=== PATIENT | female | born 1955 | race Caucasian/White ===

== ENCOUNTER → 2016-06-09 | Outpatient (CLI) | payer BC ==
[~2016-06-09] MED LIST: CALC500C70 PO; CETI10TA84 PO; CHOL100010 PO; CHOL100041 PO; CYAN500T PO; ENOX120I SQ; FMR25 PO; PRAV40TA2 PO; PRVC10 PO; WARF5TAB7 PO; WARF5TAB90 PO
== END | disposition home or self-care (01) ==
LOC: C.PAPS 09:23
PROVIDERS: ATTEND Obstetrics & Gynecology
DX: Z01.419 Encounter for gynecological examination (general) (routine) without abnormal findings (principal); Z87.42 Personal history of other diseases of the female genital tract; Z78.0 Asymptomatic menopausal state

== ENCOUNTER → 2016-06-12 | Outpatient (CLI) | payer BC | END | disposition home or self-care (01) | LOC: C.RAD1850 09:36 | PROVIDERS: ATTEND Internal Medicine | DX: Z00.00 Encounter for general adult medical examination without abnormal findings (principal); Z12.11 Encounter for screening for malignant neoplasm of colon; E78.00 Pure hypercholesterolemia, unspecified ==

== ENCOUNTER → 2016-06-18 | Outpatient (CLI) | payer BC ==
[2016-06-18 11:30] LABS: ALKALINE PHOSPHATASE 84 U/L (45-117); ALT/SGPT 39 U/L (12-78); AST/SGOT 21 U/L (15-37); BLOOD UREA NITROGEN 15 mg/dl (7-18); BUN/CREATININE RATIO 19.7 (10-20); CARBON DIOXIDE 26 mmol/L (21-32); CHLORIDE 106 mmol/L (98-107); CHOLESTEROL 258 mg/dl (0-200); CHOLESTEROL/HDL RATIO 2.8; CREATININE 0.76 mg/dl (0.60-1.20); GLUCOSE 103 mg/dl (70-99); HDL CHOLESTEROL 92 mg/dl; POTASSIUM 3.6 mmol/L (3.5-5.1); SODIUM 142 mmol/L (136-145)
[2016-06-18 11:41] LABS: LDL CHOLESTEROL CALCULATED 148 mg/dl; THYROID STIMULATING HORMONE 0.721 uIu/ml (0.300-4.500); TRIGLYCERIDES 88 mg/dl (0-150); VERY LOW DENSITY LIPOPROT CALC 18 mg/dl
== END | disposition home or self-care (01) ==
LOC: C.LAB 17:16
PROVIDERS: ATTEND Internal Medicine
DX: E78.00 Pure hypercholesterolemia, unspecified (principal); E55.9 Vitamin D deficiency, unspecified; E53.8 Deficiency of other specified B group vitamins

== ENCOUNTER 2016-11-11 16:34 | Emergency (ER) | payer BC ==
[~2016-11-11] VITALS: Ht 165.1 cm; Wt 79.7 kg
[~2016-11-11 16:34] MED LIST changes: -CHOL100041 PO; -ENOX120I SQ; -PRAV40TA2 PO; -WARF5TAB7 PO; -WARF5TAB90 PO
[2016-11-11 16:45] VITALS: BP 119/72; TEMP 36.7; Ht 165.1 cm; Wt 79.7 kg
[2016-11-11] MEDS ORDERED: PRAV40TA2 PO (17:06)
[2016-11-11 17:56] LABS: BASO % 0.1 %; BASO ABS # 0.01 K/uL (0-0.2); COMPLETE YES; EOS % 2.4 %; HEMATOCRIT 41.5 % (37-47); IG% 0.1 %; LYMPH % 19.1 %; LYMPH ABS # 1.42 K/uL (1.2-3.4); MEAN CELL VOLUME 91.4 fL (80-100); MEAN CORPUSCULAR HEMOGLOBIN 29.5 pg (25-34); MEAN CORPUSCULAR HGB CONC 32.3 g/dl (32-36); MEAN PLATELET VOLUME 8.2 fL (7.4-10.4); MONO % 7.9 %; NEUT % 70.4 %; PLATELET COUNT 134 K/uL (130-400); RED BLOOD COUNT 4.54 M/uL (4.2-5.4); WHITE BLOOD COUNT 7.45 K/uL (4.8-10.8)
[2016-11-11 18:12] LABS: INR 0.9 (0.9-1.1); PROTHROMBIN TIME (PATIENT) 9.7 SECONDS (9.0-12.0)
[2016-11-11 18:17] LABS: BUN/CREATININE RATIO 18.9 (10-20); CREATININE 0.83 mg/dl (0.60-1.20); POTASSIUM 3.4 mmol/L (3.5-5.1)
--- NOTE | 2016-11-11 18:22 | DIAGNOSTIC IMAGING REPORT ---
VENOUS DOPP LOWER EXT UNILAT CLINICAL HISTORY: EVALUATE FOR DVT pain. Edema. TECHNIQUE: Venous Doppler COMPARISON STUDY: None FINDINGS: Study is positive for acute deep venous thrombosis in the involving the left femoral vein and its mid to distal aspect. There is also involvement of the popliteal vein. IMPRESSION: Acute deep venous thrombosis from the mid femoral vein extending through the popliteal vein. The above report was generated using voice recognition software. It may contain grammatical, syntax or spelling errors. Electronically signed by: lAlen Leach M.D. 11/11/2016 6:20 PM Dictated Date/Time: 11/11/2016 6:19 PM
[2016-11-11] MEDS ORDERED: ENOXAPARIN 120 MG/0.8 ML SYR SQ ONE (19:00)
[2016-11-11] MEDS ORDERED: WARFARIN SOD 5 MG TAB PO ONE (19:00)
[2016-11-11] MEDS ORDERED: LOVENOX TEACHING KIT PRN (19:00)
[2016-11-11] MEDS ORDERED: WARF5TAB90 PO (19:02)
[2016-11-11] MEDS ORDERED: ENOX120I SQ (19:02)
[2016-11-11 19:45] VITALS: PULSE 95; O2SAT 100
--- NOTE | 2016-11-12 00:53 | EMERGENCY ROOM VISIT NOTE ---
ED Visit Note First contact with patient: 16:51 Chief Complaint: Left leg pain and swelling. History of Present Illness: Ms. Bales is a 61-year-old white female who ambulates into the ED complaining of left lower leg pain and swelling. Historically patient reports she had a left lower leg DVT last year after breast implantation surgery and was on anticoagulant therapy for approximately 7 months. Additionally she reports she has factor V Leiden mutation disorder. Patient reports 2 days ago she started developing pain in the left popliteal area. She reports the pain has been mild and rates her discomfort 2/10. Over the past few days she has noted her pain starting radiating medially and up into her thigh. She has not identified any aggravating or alleviating factors related to the pain. She has been using ibuprofen without relief of her discomfort. Upon waking today she noted swelling of the lower leg and around the ankle and concerned about a DVT. She denies any associated symptoms including fevers, chills, sweats, skin eruptions, skin color changes, chest pain, palpitations, orthopnea, claudication , cramping, recent surgery/inactivity/extended travel, syncope, leg weakness/ numbness/tingling, recent trauma to the left leg. Review of Systems: As noted above in history of present illness. All body systems were reviewed and found to be negative as noted above. Past Medical History: As previously noted, irritable bowel syndrome, hypercholesterolemia, and status post section, cholecystectomy, mastectomy and wisdom teeth extraction. Current Medications: Zyrtec, Os-Steven plus D, pravastatin, Femara. Allergies to Medications: Azithromycin, doxycycline, fluticasone, sulfa. Social History: Patient is currently employed; she feels safe in her home environment; she denies tobacco and alcohol use. Physical Examination: Vital Signs: Date Time Temp Pulse Resp B/P (MAP) Pulse Ox O2 Delivery O2 Flow Rate FiO2 11/11/16 19:45 95 18 100 11/11/16 18:45 92 11/11/16 16:45 36.7 87 18 119/72 100 Room Air GENERAL: 61-year-old female in mild distress due to pain, nontoxic-appearing, afebrile and hemodynamically stable. NEUROLOGICAL: Awake, alert and oriented to person, place and time. Answering questions appropriately and following commands. Normal gait. Good hand eye coordination. No focal motor sensory deficits. SKIN: Warm, dry and pink. No soft tissue eruptions or trauma noted. HEENT: Atraumatic and normocephalic. PERRLA. Sclera white and conjunctiva pink. No drainage from naris. Oral cavity moist and pink. Pharynx is nonerythematous or edematous. Speech normal. No lymphadenopathy. Trachea midline. No jugular venous distention. No carotid bruits. BACK: No tenderness over the bony spine. No CVA tenderness. THORAX: Lungs sounds are clear to auscultation and equal bilaterally with symmetrical chest wall. No wheezing, rales or rhonchi. No crepitus, tenderness , subcutaneous air or deformities noted. HEART: Regular rate and rhythm. No gallops, rubs or murmurs are appreciated. ABDOMEN: Flat, soft and nontender. Positive bowel sounds in all quadrants. No guarding, rigidity or organomegaly. EXTREMITIES: Moves all extremities well on command and with purpose. All distal neurovascular statuses are intact and equal bilaterally. Left Lower Extremity: No gross bony deformity. No shortening or malrotation. No tenderness over the hip, knee, ankle or foot. Mild tenderness in the popliteal area and extending medially and up the medial aspect to the mid thigh. Lower leg is mildly swollen but is not erythematous. No palpable cords. Full range of motion of flexion and extension of the knee, plantar flexion and dorsiflexion of the ankle and flexion and extension of all toes. Throughout the foot the skin was warm and pink and capillary refill is brisk. Distal pulses were intact and equal bilaterally. She was able to distinguish light sensations through all dermatomes of the lower leg. ED Course: Patient is assessed as noted above. Patient's medication list was reviewed. Laboratory Testing: Test 11/11/16 17:42 Range/Units White Blood Count 7.45 4.8-10.8 K/uL Red Blood Count 4.54 4.2-5.4 M/uL Hemoglobin 13.4 12.0-16.0 g/dL Hematocrit 41.5 37-47 % Mean Corpuscular Volume 91.4 80-100 fL Mean Corpuscular Hemoglobin 29.5 25-34 pg Mean Corpuscular Hemoglobin Concent 32.3 32-36 g/dl Platelet Count 134 130-400 K/uL Mean Platelet Volume 8.2 7.4-10.4 fL Neutrophils (%) (Auto) 70.4 % Lymphocytes (%) (Auto) 19.1 % Monocytes (%) (Auto) 7.9 % Eosinophils (%) (Auto) 2.4 % Basophils (%) (Auto) 0.1 % Neutrophils # (Auto) 5.24 1.4-6.5 K/uL Lymphocytes # (Auto) 1.42 1.2-3.4 K/uL Monocytes # (Auto) 0.59 0.11-0.59 K/uL Eosinophils # (Auto) 0.18 0-0.5 K/uL Basophils # (Auto) 0.01 0-0.2 K/uL RDW Standard Deviation 45.2 36.4-46.3 fL RDW Coefficient of Variation 13.5 11.5-14.5 % Immature Granulocyte % (Auto) 0.1 % Immature Granulocyte # (Auto) 0.01 0.00-0.02 K/uL Prothrombin Time 9.7 9.0-12.0 SECONDS Prothromb Time International Ratio 0.9 0.9-1.1 Activated Partial Thromboplast Time 25.6 21.0-31.0 SECONDS Partial Thromboplastin Ratio 1.0 Sodium Level 139 136-145 mmol/L Potassium Level 3.4 3.5-5.1 mmol/L Chloride Level 105 98-107 mmol/L Carbon Dioxide Level 28 21-32 mmol/L Anion Gap 6.0 3-11 mmol/L Blood Urea Nitrogen 16 7-18 mg/dl Creatinine 0.83 0.60-1.20 mg/dl Est Creatinine Clear Calc Drug Dose 75.2 ml/min Estimated GFR () 88.8 Estimated GFR (Non- 76.6 BUN/Creatinine Ratio 18.9 10-20 Random Glucose 95 70-99 mg/dl Calcium Level 10.0 8.5-10.1 mg/dl Total Bilirubin 0.5 0.2-1 mg/dl Aspartate Amino Transf (AST/SGOT) 26 15-37 U/L Alanine Aminotransferase (ALT/SGPT) 43 12-78 U/L Alkaline Phosphatase 142 45-117 U/L Total Protein 7.9 6.4-8.2 gm/dl Albumin 3.9 3.4-5.0 gm/dl Globulin 4.0 2.5-4.0 gm/dl Albumin/Globulin Ratio 1.0 0.9-2 Left Lower Extremity Venous Doppler Ultrasound: Was reviewed by myself and read by the radiologist showing an acute deep faint thrombus from the mid femoral vein extending through the popliteal vein. Patient was offered pain medication and refused. Patient's case was reviewed with Dr. Herrera; we agreed on diagnostic approach , treatment, disposition and plan. Patient was treated with 120 mg of Lovenox subcutaneous and 5 mg of Coumadin by mouth. Patient was reassessed multiple times during his stay in the emergency department. Patient was educated about today's findings and instructed on her treatment plan ; she verbalized understanding and agreement with this plan. Clinical Impression: Left lower extremity acute deep vein thrombus. Decision-Making: Slim my differential diagnosis I considered dependent edema, DVT, arterial occlusion, infection and other causes. Disposition: Patient discharged home in stable condition; prior to departure she was reassessed and subjectively reported that she was pain and symptom-free. Plan: Patient was prescribed Lovenox and Coumadin and instructed on their use. Patient was encouraged to contact her PCP and the hematology clinic for follow- up care and treatment. Patient was encouraged return ED for worsening pain, worsening swelling, chest pain, palpitations, shortness of breath or any new/concerning symptoms.
[2016-11-24] MEDS ORDERED: WARF5TAB7 PO ×3 (13:40→14:08)
== END 2016-11-11 19:45 | disposition home or self-care (01) ==
LOC: C.EDB 16:36 → C.EDA 19:45
DX: I82.402 Acute embolism and thrombosis of unspecified deep veins of left lower extremity (principal); D68.2 Hereditary deficiency of other clotting factors; E78.00 Pure hypercholesterolemia, unspecified; K58.9 Irritable bowel syndrome, unspecified; Z90.49 Acquired absence of other specified parts of digestive tract; Z90.10 Acquired absence of unspecified breast and nipple; Z79.899 Other long term (current) drug therapy; Z88.1 Allergy status to other antibiotic agents; Z88.2 Allergy status to sulfonamides; Z88.8 Allergy status to other drugs, medicaments and biological substances

== ENCOUNTER → 2016-11-15 | Outpatient (CLI) | payer BC ==
[~2016-11-15] MED LIST changes: +CHOL100041 PO; +ENOX120I SQ; +PRAV40TA2 PO; -PRVC10 PO; +WARF5TAB7 PO; +WARF5TAB90 PO
[2016-11-15 12:29] LABS: INR 1.2 (0.9-1.1); PROTHROMBIN TIME (PATIENT) 12.5 SECONDS (9.0-12.0)
== END | disposition home or self-care (01) ==
LOC: C.LAB1850 10:08
PROVIDERS: ATTEND Physician Assistant
DX: I82.409 Acute embolism and thrombosis of unspecified deep veins of unspecified lower extremity (principal)

== ENCOUNTER 2016-12-01 12:58 | Emergency (ER) | payer BC ==
[~2016-12-01] VITALS: Ht 166.4 cm; Wt 79.6 kg
[~2016-12-01 12:58] MED LIST changes: -CHOL100041 PO; -ENOX120I SQ; -WARF5TAB90 PO
[2016-12-01 13:05] VITALS: TEMP 36.5; Ht 166.4 cm; Wt 79.6 kg
[2016-12-01 13:58] LABS: BASO % 0.2 %; BASO ABS # 0.01 K/uL (0-0.2); COMPLETE YES; EOS % 1.2 %; HEMATOCRIT 39.1 % (37-47); IG% 0.2 %; LYMPH % 23.8 %; LYMPH ABS # 1.21 K/uL (1.2-3.4); MEAN CELL VOLUME 92.7 fL (80-100); MEAN CORPUSCULAR HEMOGLOBIN 30.8 pg (25-34); MEAN CORPUSCULAR HGB CONC 33.2 g/dl (32-36); MEAN PLATELET VOLUME 8.1 fL (7.4-10.4); MONO % 4.1 %; NEUT % 70.5 %; PLATELET COUNT 197 K/uL (130-400); RED BLOOD COUNT 4.22 M/uL (4.2-5.4); WHITE BLOOD COUNT 5.08 K/uL (4.8-10.8)
[2016-12-01] MEDS ORDERED: CHOL100041 PO (14:11)
[2016-12-01 14:13] LABS: BUN/CREATININE RATIO 17.1 (10-20); CALCIUM 9.4 mg/dl (8.5-10.1); CREATININE 0.84 mg/dl (0.60-1.20); INR 2.3 (0.9-1.1); PARTIAL THROMBOPLASTIN RATIO 1.4; POTASSIUM 3.5 mmol/L (3.5-5.1); PROTHROMBIN TIME (PATIENT) 25.9 SECONDS (9.0-12.0)
[2016-12-01 14:16] LABS: ALB/GLOB RATIO 0.9 (0.9-2)
[2016-12-01 14:51] VITALS: BP 122/83; PULSE 80; O2SAT 96
--- NOTE | 2016-12-01 15:42 | EMERGENCY ROOM VISIT NOTE ---
History First contact with patient: 13:20 Chief Complaint: LEG PAIN,LEG INJURY Stated Complaint: REDDENING,SWELLING,BRUISING IN L LEG DUE TO CLOT History of Present Illness The patient is a 61 year old female who presents to the Emergency Room with complaints of worsening swelling and bruising to her left lower leg. The patient noticed her symptoms yesterday evening, and contacted her primary care physician's office this morning. She was referred to the ER for further care and management. She does have a positive DVT on ultrasound performed at this facility roughly 3 weeks ago. She is on Coumadin for this, and states that her INR yesterday was 1.8. She did take an increased dose of Coumadin yesterday to help improve her INR. The patient does have some persisting discomfort in the leg because of the swelling. She does not have new injury or trauma. She is able to ambulate and does not have numbness or paresthesias. She is not experiencing fever, lightheadedness, dizziness, chest pain, chest tightness, shortness of breath, or dyspnea on exertion. She rates her discomfort a 2/10. Review of Systems More than 10 systems were reviewed and otherwise negative with the exception of history of present illness. Past Medical/Surgical History Medical Problems: (1) Breast cancer (2) section (3) Cholecystectomy (4) Factor 5 Leiden mutation, heterozygous (5) IRRITABLE BOWEL SYNDROME (6) Mastectomy (7) [place] Teeth Removal Family History Family history of factor V Social History Smoking Status: Never Smoker Alcohol Use: occasionally Marital Status: Housing Status: lives with family Occupation Status: employed Current/Historical Medications Scheduled Calcium/Vitamin D (Os-Steven 500 Plus D), 1 TAB PO QAM Cetirizine (Zyrtec), 10 MG PO QPM Cholecalciferol (D 1000), 1,000 UNIT PO DAILY Cyanocobalamin (Vitamin B-12), 1 TAB PO QAM Letrozole (Femara), 2.5 MG PO QAM Pravastatin Sodium (Pravastatin Sodium), 40 MG PO DAILY Warfarin Sod (Jantoven), 10 MG PO 5XWK Warfarin Sod (Jantoven), 15 MG PO 2XWK Physical Exam Vital Signs Date Time Temp Pulse Resp B/P (MAP) Pulse Ox O2 Delivery O2 Flow Rate FiO2 12/01/16 14:51 80 18 122/83 96 12/01/16 13:05 36.5 88 18 118/77 96 Room Air Physical Exam VITALS: Vitals are noted on the nurse's note and reviewed by myself. Vital signs stable. GENERAL: Well-developed, well-nourished, white female, who is in no acute distress and resting comfortably. Patient is cooperative with the examination. HEART: Regular rate and rhythm with 1/6 systolic murmur LUNGS: Clear to auscultation bilaterally without wheezes, rales or rhonchi. No retractions or accessory muscle use. ABDOMEN: Positive normal bowel sounds x 4. Soft, nontender, without masses or organomegaly. No guarding or rebound tenderness. MUSCULOSKELETAL: Edema is appreciated to the left lower extremity when compared to the right lower extremity. There is no pitting edema, significant ecchymosis , petechia, or evidence of infection. There is some mild tenderness throughout the left lower extremity without palpable cord. Neurovascular status is intact to the distal bilateral lower extremities. There is no pedal edema. NEURO: Patient was alert and oriented to person place and time. CN II through XII grossly intact. Medical Decision & Procedures Laboratory Results 12/01/16 13:45 Red Blood Count 4.22, Mean Corpuscular Volume 92.7, Mean Corpuscular Hemoglobin 30.8, Mean Corpuscular Hemoglobin Concent 33.2, Mean Platelet Volume 8.1, Neutrophils (%) (Auto) 70.5, Lymphocytes (%) (Auto) 23.8, Monocytes (%) (Auto) 4.1, Eosinophils (%) (Auto) 1.2, Basophils (%) (Auto) 0.2, Neutrophils # (Auto) 3.58, Lymphocytes # (Auto) 1.21, Monocytes # (Auto) 0.21, Eosinophils # (Auto) 0.06, Basophils # (Auto) 0.01 12/01/16 13:45 Test 12/01/16 13:45 White Blood Count 5.08 K/uL (4.8-10.8) Red Blood Count 4.22 M/uL (4.2-5.4) Hemoglobin 13.0 g/dL (12.0-16.0) Hematocrit 39.1 % (37-47) Mean Corpuscular Volume 92.7 fL (80-100) Mean Corpuscular Hemoglobin 30.8 pg (25-34) Mean Corpuscular Hemoglobin Concent 33.2 g/dl (32-36) Platelet Count 197 K/uL (130-400) Mean Platelet Volume 8.1 fL (7.4-10.4) Neutrophils (%) (Auto) 70.5 % Lymphocytes (%) (Auto) 23.8 % Monocytes (%) (Auto) 4.1 % Eosinophils (%) (Auto) 1.2 % Basophils (%) (Auto) 0.2 % Neutrophils # (Auto) 3.58 K/uL (1.4-6.5) Lymphocytes # (Auto) 1.21 K/uL (1.2-3.4) Monocytes # (Auto) 0.21 K/uL (0.11-0.59) Eosinophils # (Auto) 0.06 K/uL (0-0.5) Basophils # (Auto) 0.01 K/uL (0-0.2) RDW Standard Deviation 45.9 fL (36.4-46.3) RDW Coefficient of Variation 13.5 % (11.5-14.5) Immature Granulocyte % (Auto) 0.2 % Immature Granulocyte # (Auto) 0.01 K/uL (0.00-0.02) Prothrombin Time 25.9 SECONDS (9.0-12.0) Prothromb Time International Ratio 2.3 (0.9-1.1) Activated Partial Thromboplast Time 37.6 SECONDS (21.0-31.0) Partial Thromboplastin Ratio 1.4 Anion Gap 8.0 mmol/L (3-11) Est Creatinine Clear Calc Drug Dose 75.0 ml/min Estimated GFR () 87.6 Estimated GFR (Non- 75.5 BUN/Creatinine Ratio 17.1 (10-20) Calcium Level 9.4 mg/dl (8.5-10.1) Total Bilirubin 0.3 mg/dl (0.2-1) Aspartate Amino Transf (AST/SGOT) 19 U/L (15-37) Alanine Aminotransferase (ALT/SGPT) 27 U/L (12-78) Alkaline Phosphatase 117 U/L (45-117) Total Protein 7.6 gm/dl (6.4-8.2) Albumin 3.6 gm/dl (3.4-5.0) Globulin 4.0 gm/dl (2.5-4.0) Albumin/Globulin Ratio 0.9 (0.9-2) ED Course Physical exam and history were performed. Nursing notes, EMR, and Medication List were personally reviewed. Patient appears to have swelling to her left lower extremity that has worsened over the past one day. She does have a known DVT on ultrasound and is currently on Coumadin. She is not having shortness of breath or dyspnea on exertion. She is not febrile, tachycardic, or hypoxic. IV access was established and labs were obtained. The patient's blood work is as above and was reviewed. She does not have a significant elevated white blood cell count, gross anemia, bandemia, or significant electrolyte imbalance. Platelet count is normal. INR is 2.3, which is improved from yesterday. Her other lab work was fairly unremarkable. Overall the patient remained in stable condition throughout her Emergency Department stay. I discussed options of care with the patient, who does appear well for discharge home. She certainly does not have symptoms or vital signs concerning of a PE. She is on warfarin after Lovenox bridge, and is doing well with her medication. She does have some swelling of the left lower extremity when compared to the right, however this is nonpitting and does not appear to be consistent with infection. I do suspect this is from the sequela related to the blood clot. She is on appropriate therapy and repeat ultrasound does not seem necessary at this time. The patient will be treated conservatively with rest, elevation, and compression. She is to continue her warfarin at the direction of the Coumadin clinic. I did thoroughly educated the patient on the importance of returning with any cardiopulmonary symptoms. The patient was pleased with this and voiced understanding. She will follow with her primary care physician next week. The patient rated her discomfort a 0/10 at the time of departure. The chart was completed utilizing [employer] Speech Voice Recognition Software. Grammatical errors, random word insertions, pronoun errors, and incomplete sentences are an occasional consequence of this system due to software limitations, ambient noise, and hardware issues. Any formal questions or concerns about the content, text, or information contained within the body of this dictation should be directly addressed to the provider for clarification. . Medical Decision Differential diagnosis: Etiologies such as DVT, musculoskeletal, infection, joint effusion, trauma, lymphedema, idiopathic, CHF, as well as others were entertained.. Medication Reconcilliation Current Medication List: was personally reviewed by me Blood Pressure Screening Patient's blood pressure: Normal blood pressure Impression Primary Impression: Leg edema, left Departure Information Referrals RV. Arnold MD (PCP) Patient Instructions My [facility]
== END 2016-12-01 14:54 | disposition home or self-care (01) ==
LOC: C.EDB 13:00 → C.EDA 14:54
DX: R60.0 Localized edema (principal); Z86.718 Personal history of other venous thrombosis and embolism; Z85.3 Personal history of malignant neoplasm of breast; K58.9 Irritable bowel syndrome, unspecified; D58.2 Other hemoglobinopathies; Z79.01 Long term (current) use of anticoagulants; Z79.899 Other long term (current) drug therapy

== ENCOUNTER → 2016-12-16 | Outpatient (CLI) | payer BC ==
[2015-12-18 12:56] VITALS: BP 129/79; PULSE 93
[~2016-12-16] MED LIST changes: -CHOL100010 PO; +CHOL100041 PO
[2016-12-16 13:06] VITALS: BP 113/68; PULSE 79; TEMP 36.3; O2SAT 97
--- NOTE | 2016-12-16 15:34 | Radiation Oncology Follow-Up ---
Radiation Oncology Follow-Up Date of Visit Dec 16, 2016. Reason For Visit Annual follow-up Radiation Completion Date 05/28/13 Diagnosis (1) Breast cancer Status: Resolved Onset Date: 06/23/2012 Location: left breast Histology Subtype: lobular Stage: lll Permanent Comment: Abnormal left breast mammogram Status post biopsy positive for infiltrating lobular carcinoma MRI confirming lesion followed by skin sparing, nipple sparing, bilateral mastectomy with placement of immediate subpectoral implant Pathologic stage pT2 pN2M0. Right breast showed lobular carcinoma in situ Status post systemic chemotherapy Status post completion of radiation therapy 05/28/2013 received 6120 cGy Last Edited By: Valeria Shin on Dec 19, 2014 14:24 Interim History She has recently restarted lymphedema therapy. This does not affect her arm. She has discomfort and mild swelling of the lateral side of the breast in the mid axillary line. She had this previously and has recently recurred. She feels that it has gradually increased over the past 2 months. She recently was able to restart lymphedema treatment. She started this last week. There is mild discomfort associated. She gives us a pain level of 1. This occurs when the area has pressure against it. It makes it difficult for her to wear her bra off. She has previously had savings for bras performed in [place]. She unfortunately had another DVT and is now on anticoagulation. She is being followed by the coag clinic. Allergies Coded Allergies: Dust Mite Extract (Verified Allergy, Unknown, ., 12/01/16) POLLEN (Verified Allergy, Unknown, ., 12/01/16) Ragweed (Verified Allergy, Unknown, ., 12/01/16) Sulfa Drugs (Verified Allergy, Unknown, PT DOESN'T REMEMBER WHAT HAPPENED , 12/01/16) Azithromycin (Verified Adverse Reaction, Mild, NAUSEA, 12/01/16) Doxycycline (Verified Adverse Reaction, Mild, NAUSEA, 12/01/16) has taken it recently without problem Fluticasone (Verified Adverse Reaction, Mild, UNKNOWN, 12/01/16) has taken it recently without problem Shellfish (Verified Adverse Reaction, Mild, nausea/vomiting/diarrhea, 12/01) Home Medications Scheduled Calcium/Vitamin D (Os-Steven 500 Plus D), 1 TAB PO QAM Cetirizine (Zyrtec), 10 MG PO QPM Cholecalciferol (D 1000), 1,000 UNIT PO DAILY Cyanocobalamin (Vitamin B-12), 1 TAB PO QAM Letrozole (Femara), 2.5 MG PO QAM Pravastatin Sodium (Pravastatin Sodium), 40 MG PO DAILY Warfarin Sod (Jantoven), 10 MG PO 5XWK Warfarin Sod (Jantoven), 7.5 MG PO 2XWK Review of Systems Gastrointestinal: Symptoms: WNL, Diarrhea GI Comments: Diarrhea - relates to INR instability at this time Oral: Symptoms: No Problems Respiratory: Symptoms: WNL Urinary: Symptoms: WNL Comments: occ pain with urination, does not drink enough Skin: Symptoms: No Problems Breast: Right Upper Arm Measurement: 33.5 Right Mid Arm Measurement: 24.1 Right Wrist Measurement: 15.6 Left Upper Arm Measurement: 34.0 Left Mid Arm Measurement: 24.1 Left Wrist Measurement: 15.4 Arm Dominence: Right Patient Cosmetic Evaluation: Excellent Staff Cosmetic Evalaluation: Excellent Cosmetic Comments: Patient has sleeve on left arm Physical Exam Vital Signs Date Time Temp Pulse Resp B/P (MAP) Pulse Ox O2 Delivery O2 Flow Rate FiO2 12/16/16 13:06 36.3 79 16 113/68 97 Pain: Side: Bilateral Pain Location: hip/knee Patient Pain Scale: 0 - 10 Initial Pain Intensity: 0.0 Fatigue: None General Appearance: no apparent distress Eyes: normal inspection, EOMI ENT: normal ENT inspection, hearing grossly normal Neck: no adenopathy, thyroid normal Respiratory/Chest: lungs clear, no respiratory distress, no accessory muscle use Breast: Breast examination reveals bilateral nipple sparing mastectomies with permanent implants. There are no masses or tenderness and no axillary adenopathy. She has no telangiectasia or skin retractions. She has no axillary adenopathy. Using the [place] score cosmesis she has a in excellent outcome. Cardiovascular: regular rate, rhythm, no gallop, no murmur Neurologic/Psychiatric: no motor/sensory deficits, alert, normal mood/affect Skin: warm/dry Laboratory Studies Test 11/11/16 17:42 11/22/16 07:38 12/01/16 13:45 12/07/16 09:46 White Blood Count 7.45 K/uL (4.8-10.8) 5.08 K/uL (4.8-10.8) Red Blood Count 4.54 M/uL (4.2-5.4) 4.22 M/uL (4.2-5.4) Hemoglobin 13.4 g/dL (12.0-16.0) 13.0 g/dL (12.0-16.0) Hematocrit 41.5 % (37-47) 39.1 % (37-47) Mean Corpuscular Volume 91.4 fL (80-100) 92.7 fL (80-100) Mean Corpuscular Hemoglobin 29.5 pg (25-34) 30.8 pg (25-34) Mean Corpuscular Hemoglobin Concent 32.3 g/dl (32-36) 33.2 g/dl (32-36) Platelet Count 134 K/uL (130-400) 197 K/uL (130-400) Mean Platelet Volume 8.2 fL (7.4-10.4) 8.1 fL (7.4-10.4) Neutrophils (%) (Auto) 70.4 % 70.5 % Lymphocytes (%) (Auto) 19.1 % 23.8 % Monocytes (%) (Auto) 7.9 % 4.1 % Eosinophils (%) (Auto) 2.4 % 1.2 % Basophils (%) (Auto) 0.1 % 0.2 % Neutrophils # (Auto) 5.24 K/uL (1.4-6.5) 3.58 K/uL (1.4-6.5) Lymphocytes # (Auto) 1.42 K/uL (1.2-3.4) 1.21 K/uL (1.2-3.4) Monocytes # (Auto) 0.59 K/uL (0.11-0.59) 0.21 K/uL (0.11-0.59) Eosinophils # (Auto) 0.18 K/uL (0-0.5) 0.06 K/uL (0-0.5) Basophils # (Auto) 0.01 K/uL (0-0.2) 0.01 K/uL (0-0.2) RDW Standard Deviation 45.2 fL (36.4-46.3) 45.9 fL (36.4-46.3) RDW Coefficient of Variation 13.5 % (11.5-14.5) 13.5 % (11.5-14.5) Immature Granulocyte % (Auto) 0.1 % 0.2 % Immature Granulocyte # (Auto) 0.01 K/uL (0.00-0.02) 0.01 K/uL (0.00-0.02) PTT 25.6 SECONDS (21.0-31.0) 37.6 SECONDS (21.0-31.0) Partial Thromboplastin Ratio 1.0 1.4 Sodium Level 139 mmol/L (136-145) 141 mmol/L (136-145) Potassium Level 3.4 mmol/L (3.5-5.1) 3.5 mmol/L (3.5-5.1) Chloride Level 105 mmol/L (98-107) 106 mmol/L (98-107) Carbon Dioxide Level 28 mmol/L (21-32) 27 mmol/L (21-32) Anion Gap 6.0 mmol/L (3-11) 8.0 mmol/L (3-11) Blood Urea Nitrogen 16 mg/dl (7-18) 14 mg/dl (7-18) Creatinine 0.83 mg/dl (0.60-1.20) 0.84 mg/dl (0.60-1.20) Est Creatinine Clear Calc Drug Dose 75.2 ml/min 75.0 ml/min Estimated GFR () 88.8 87.6 Estimated GFR (Non- 76.6 75.5 BUN/Creatinine Ratio 18.9 (10-20) 17.1 (10-20) Random Glucose 95 mg/dl (70-99) 94 mg/dl (70-99) Calcium Level 10.0 mg/dl (8.5-10.1) 9.4 mg/dl (8.5-10.1) Total Bilirubin 0.5 mg/dl (0.2-1) 0.3 mg/dl (0.2-1) Aspartate Amino Transferase (AST) 26 U/L (15-37) 19 U/L (15-37) Alanine Aminotransferase (ALT) 43 U/L (12-78) 27 U/L (12-78) Alkaline Phosphatase 142 U/L (45-117) 117 U/L (45-117) Total Protein 7.9 gm/dl (6.4-8.2) 7.6 gm/dl (6.4-8.2) Albumin 3.9 gm/dl (3.4-5.0) 3.6 gm/dl (3.4-5.0) Globulin 4.0 gm/dl (2.5-4.0) 4.0 gm/dl (2.5-4.0) Albumin/Globulin Ratio 1.0 (0.9-2) 0.9 (0.9-2) Prothrombin Time 30.7 SECONDS (9.0-12.0) 25.9 SECONDS (9.0-12.0) Prothrombin Time INR 2.8 (0.9-1.1) 2.3 (0.9-1.1) POC Prothrombin Time INR 3.9 (0.9-1.1) Test 12/16/16 14:38 POC Prothrombin Time INR 2.2 (0.9-1.1) Assessment & Plan Plan: Continue regular follow-up with medical oncology, her breast surgeon, and her primary care physician. She continues follow-up with the lymphedema clinic. Orders are being completed through her primary care physician's office. She is planning to see her plastic surgeon. She is contemplating of visit to the office that previously fitted her for bras. I told her if she would need a prescription for the bras or a feeding tube but me know and we will write her a prescription. She is continuing follow-up with coag clinic regards to her anticoagulation for her DVT. We asked her to return to our office in 1 year. She may call if she has any questions or concerns in the interim. Total Time In Follow-Up I spent 20 minutes speaking to the patient and performing examination. I spent 15 minutes reviewing information in completing this note. Copy To RV. Arnold MD; Emeli Gonzalez M.D.; Isaiah Rodriguez M.D.
== END | disposition home or self-care (01) ==
LOC: C.ONC 13:02
PROVIDERS: ATTEND Physician Assistant Medical
DX: Z08 Encounter for follow-up examination after completed treatment for malignant neoplasm (principal); Z92.3 Personal history of irradiation; Z85.3 Personal history of malignant neoplasm of breast

== ENCOUNTER → 2017-06-17 | Outpatient (CLI) | payer OTHER ==
[~2017-06-17] MED LIST changes: +DENO60SO SQ
== END | disposition home or self-care (01) ==
LOC: C.PAPS 18:21
PROVIDERS: ATTEND Obstetrics & Gynecology
DX: Z01.419 Encounter for gynecological examination (general) (routine) without abnormal findings (principal)

== ENCOUNTER 2017-10-30 21:21 | Emergency (ER) | payer OTHER ==
[~2017-10-30] VITALS: Ht 165.1 cm; Wt 77.0 kg
[2017-10-30 21:29] VITALS: TEMP 36.8; Ht 165.1 cm; Wt 77.0 kg
[2017-10-30] MEDS ORDERED: LETR2TAB PO (22:05)
--- NOTE | 2017-10-30 22:22 | DIAGNOSTIC IMAGING REPORT ---
R FOOT MIN 3 VIEWS ROUTINE CLINICAL HISTORY: pain, lateral aspect pain COMPARISON: None. DISCUSSION: Tiny avulsion base fifth metatarsal uncertain age. Mild nonspecific soft tissue edema. No additional fracture is identified. IMPRESSION: Tiny avulsion base fifth metatarsal of uncertain age. Mild soft tissue edema. The above report was generated using voice recognition software. It may contain grammatical, syntax or spelling errors. Electronically signed by: Allen Leach M.D. 10/30/2017 10:20 PM Dictated Date/Time: 10/30/2017 10:20 PM
--- NOTE | 2017-10-30 22:23 | DIAGNOSTIC IMAGING REPORT ---
R ANKLE MIN 3 VIEWS ROUTINE CLINICAL HISTORY: pain, lateral aspect pain COMPARISON: None. DISCUSSION: Tiny avulsion base fifth metatarsal uncertain age. Heart rate osseous structures are unremarkable. Ankle mortise is aligned anatomically. There is no evidence for soft tissue swelling. IMPRESSION: Tiny avulsion base fifth metatarsal uncertain age. Otherwise negative study. The above report was generated using voice recognition software. It may contain grammatical, syntax or spelling errors. Electronically signed by: Allen Leach M.D. 10/30/2017 10:21 PM Dictated Date/Time: 10/30/2017 10:21 PM
[2017-10-30] MEDS ORDERED: OXYCODONE IR HOME PACK PO ONE (22:30)
[2017-10-30 22:41] VITALS: BP 111/75; PULSE 78; O2SAT 99
--- NOTE | 2017-10-31 06:06 | EMERGENCY ROOM VISIT NOTE ---
ED Visit Note First contact with patient: 21:33 CHIEF COMPLAINT: Foot pain HISTORY OF PRESENT ILLNESS: This 62-year-old patient presents to the emergency department with complaining of swelling and pain in the right foot at rest and worse with weight bearing. The patient thinks she might have injured it while cleaning today. The patient rates the pain as throbbing and 7/10. The patient has had nothing for relief of the pain. The patient is not able to walk. No numbness or weakness. No ankle pain. There are no lacerations of the foot. The patient is able to move all of their toes and their ankle without pain. no previous fracture to this foot. REVIEW OF SYSTEMS: GENERAL: A 6 system review of systems was completed with positives and pertinent negatives in the HPI. ALLERGIES: Zithromax, review MEDICATIONS: Reviewed PMH:Medical Problems: (1) Breast cancer Permanent Comment: Abnormal left breast mammogram Status post biopsy positive for infiltrating lobular carcinoma MRI confirming lesion followed by skin sparing, nipple sparing, bilateral mastectomy with placement of immediate subpectoral implant Pathologic stage pT2 pN2M0. Right breast showed lobular carcinoma in situ Status post systemic chemotherapy Status post completion of radiation therapy 05/28/2013 received 6120 cGy Status: Resolved (2) section Status: Resolved (3) Cholecystectomy Status: Resolved (4) Factor 5 Leiden mutation, heterozygous Status: Chronic (5) IRRITABLE BOWEL SYNDROME Status: Chronic (6) Mastectomy Status: Resolved (7) [place] Teeth Removal Status: Resolved SOCIAL HISTORY: No drug use PHYSICAL EXAM: Vital Signs: Reviewed Nurse's notes, vital signs stable. GENERAL : Pleasant female, in no acute distress, but appears in pain, well-developed, well-nourished. MUSCULOSKELATAL: There is no visual deformity of the right foot. There is no erythema no ecchymosis. There is no warmth. There is tenderness and swelling over the lateral aspect of the right foot. There is no tenderness over the lateral or medial malleolus. No tenderness of the tib/fib. The range of motion of the foot is limited secondary to pain. There is no tenderness over the plantar fascia. The skin is intact and there are no lacerations or puncture wounds. Dorsalis pedis pulse 2+. Capillary refill less than 2 seconds. EMERGENCY DEPARTMENT COURSE: I examined the patient. An X-ray of the right ankle and foot was reviewed by myself and radiology and reveals R FOOT MIN 3 VIEWS ROUTINE CLINICAL HISTORY: pain, lateral aspect pain COMPARISON: None. DISCUSSION: Tiny avulsion base fifth metatarsal uncertain age. Mild nonspecific soft tissue edema. No additional fracture is identified. IMPRESSION: Tiny avulsion base fifth metatarsal of uncertain age. Mild soft tissue edema. The above report was generated using voice recognition software. It may contain grammatical, syntax or spelling errors. Electronically signed by: Allen Leach M.D.. The patient was placed in a postop shoe and instructed on the use of crutches. Patient was tender so she was splinted as above. She is advised to follow-up with orthopedics in a few days for further evaluation treatment or here in the ER sooner for severe pain, numbness, tingling, worsening signs or symptoms or as needed. Patient was neurovascularly intact. She is well-appearing. The patient was discharged home in good condition. DIAGNOSIS: #1 right foot fifth metatarsal avulsion fracture TREATMENT: As below Problem List Medical Problems: (1) Breast cancer Permanent Comment: Abnormal left breast mammogram Status post biopsy positive for infiltrating lobular carcinoma MRI confirming lesion followed by skin sparing, nipple sparing, bilateral mastectomy with placement of immediate subpectoral implant Pathologic stage pT2 pN2M0. Right breast showed lobular carcinoma in situ Status post systemic chemotherapy Status post completion of radiation therapy 05/28/2013 received 6120 cGy Status: Resolved (2) section Status: Resolved (3) Cholecystectomy Status: Resolved (4) Factor 5 Leiden mutation, heterozygous Status: Chronic (5) IRRITABLE BOWEL SYNDROME Status: Chronic (6) Mastectomy Status: Resolved (7) [place] Teeth Removal Status: Resolved Current/Historical Medications Scheduled Calcium/Vitamin D (Os-Steven 500 Plus D), 1 TAB PO QAM Cetirizine (Zyrtec), 10 MG PO QPM Cholecalciferol (D 1000), 1,000 INTER.UNIT PO DAILY Cyanocobalamin (Vitamin B-12), 500 MCG PO QAM Denosumab (Prolia), 1 DOSE SQ UD Letrozole (Femara), 2.5 MG PO QAM Pravastatin Sodium (Pravastatin Sodium), 40 MG PO DAILY Warfarin Sod (Jantoven), 10 MG PO 3XWK Warfarin Sod (Jantoven), 7.5 MG PO 4XWK Allergies Coded Allergies: Dust Mite Extract (Verified Allergy, Unknown, ., 12/01/16) POLLEN (Verified Allergy, Unknown, ., 12/01/16) Ragweed (Verified Allergy, Unknown, ., 12/01/16) Sulfa Drugs (Verified Allergy, Unknown, PT DOESN'T REMEMBER WHAT HAPPENED , 12/01/16) Azithromycin (Verified Adverse Reaction, Mild, NAUSEA, 12/01/16) Fluticasone (Verified Adverse Reaction, Mild, UNKNOWN, 12/01/16) has taken it recently without problem Shellfish (Verified Adverse Reaction, Mild, nausea/vomiting/diarrhea, 12/01) Vital Signs Date Time Temp Pulse Resp B/P (MAP) Pulse Ox O2 Delivery O2 Flow Rate FiO2 10/30/17 22:41 78 14 111/75 99 Room Air 10/30/17 21:29 36.8 84 18 113/71 97 Room Air Medications Administered Medications (Trade) Dose Ordered Sig/Ash Route Start Time Stop Time Status Last Admin Dose Admin Oxycodone HCl (Roxicodone Immediate Rel 5MG Home Pack) 1 homepack UD ONCE PO 10/30/17 22:30 10/30/17 22:31 DC 10/30/17 22:49 1 HOMEPACK Departure Information Impression Primary Impression: Metatarsal fracture Dispostion Home / Self-Care Condition GOOD Referrals Ga Teixeira D.O. Forms HOME CARE DOCUMENTATION FORM, IMPORTANT VISIT INFORMATION Patient Instructions [facility] Additional Instructions Oxycodone (OxyIR) 5mg: Take 1-2 pills every four hours for breakthrough pain. Avoid alcohol, operating machinery or dangerous equipment, working on ladders or roofs, DRIVING, or situations where being under the influence may be dangerous. It is recommended to use an [id number] stool softener such as Colace, 100mg twice daily while taking this medication to avoid constipation. Acetaminophen(Tylenol) may be used for fever or pain. Use 1000mg every six hours as needed. Avoid using more than 3000mg in a 24 hour period. This medication can be taken if you need to drive, work, or perform activities which may be dangerous when taking narcotic pain medication. Ice compresses for 20 minutes at a time four times daily for 2-3 days. Use the crutches as instructed. Rest and elevate your injury. Wear postop shoe until seen by orthopedics. Do not have it so tight that you cannot feel your toes. Continue current medications. Return to the ER immediately for any numbness, tingling, severe pain, extreme swelling in the extremity or as needed. Call Orthopedics tomorrow to arrange follow up for your injury.
== END 2017-10-30 23:01 | disposition home or self-care (01) ==
LOC: C.EDB 21:23 → C.EDD 23:01
DX: S12.400A Unspecified displaced fracture of fifth cervical vertebra, initial encounter for closed fracture (principal); X58.XXXA Exposure to other specified factors, initial encounter; Z79.01 Long term (current) use of anticoagulants; Z79.899 Other long term (current) drug therapy; Z88.8 Allergy status to other drugs, medicaments and biological substances; Z91.048 Other nonmedicinal substance allergy status; Z88.2 Allergy status to sulfonamides; Z88.1 Allergy status to other antibiotic agents; Z91.013 Allergy to seafood

== ENCOUNTER → 2017-11-15 | Outpatient (CLI) | payer OTHER ==
[~2017-11-15] MED LIST changes: -FMR25 PO; +IMD/2 PO; +LETR2TAB PO; +MISCCAP80
== END | disposition home or self-care (01) ==
LOC: C.LAB 07:49
PROVIDERS: ATTEND Physician Assistant
DX: R19.7 Diarrhea, unspecified (principal)